=== PATIENT | female | born 1985 | race Caucasian/White ===

== ENCOUNTER 2020-07-27 09:01 | Outpatient (CLI) | payer BC, SELFPAY ==
[2020-07-27 09:49] LABS: Basophils Percent Auto 0.6 % (0.2-1.2); Eosinophils Absolute Auto 0.1 K/mm3 (0-0.3); Eosinophils Percent Auto 1.3 % (0-4.4); Hematocrit 38.2 % (37.0-47.0); Immature Granulocyte Absolute 0.04 K/mm3 (0.00-0.031); Immature Granulocyte Percent A 0.6 % (0-0.5); Lymphocytes Absolute Auto 1.89 K/mm3 (0.9-3.2); Lymphocytes Percent Auto 27.8 % (18.3-44.2); Mean Corpuscular Hemoglobin 31.3 pg (26-34); Mean Corpuscular Volume 91.8 fl (80-100); Mean Platelet Volume 10.3 fl (7.4-10.4); Monocytes Absolute Auto 0.4 K/mm3 (0.1-0.6); Monocytes Percent Auto 5.7 % (2.6-8.5); Neutrophils Absolute Auto 4.4 K/mm3 (1.3-6.7); Platelet Count Result 237 k/mm3 (150-375); Red Blood Count 4.16 M/mm3 (4.2-5.4); Red Cell Distribution Width 12.5 % (11.5-14.5); White Blood Count 6.8 K/mm3 (4.5-10.0)
[2020-07-27 10:10] LABS: Add Urine Microscopic? NO; Appearance Urine Clear (Clear); Bilirubin Urine Negative (Negative); Blood Urine Negative (Negative); Color Urine Straw (Yellow); Glucose Urine UA Negative (Negative); Ketones Urine Negative (Negative); Leukocyte Esterase Ur Negative LEU/UL (NEGATIVE); Nitrate Urine Negative (Negative); Protein Urine Negative (Negative); Specific Grav Ur 1.009 (1.001-1.035); Urobilinogen Urine Negative mg/dL (<2.0)
[2020-07-27 10:29] LABS: Vitamin D 25 Hydroxy 52.5 ng/mL
[2020-07-27 10:40] LABS: HIV 1/2 Ab P24 Ag Result Negative (Negative)
[2020-07-27 10:45] LABS: Hepatitis B Surface Antigen Negative (Negative); Rubella IgG Antibody 28.2 IU/ML
[2020-07-27 11:01] LABS: Hepatitis C Virus Antibody Negative (Negative)
[2020-07-28 06:34] LABS: Rapid Plasma Reagin Non-Reactive (NonReactive)
[2020-08-01 10:18] LABS: Hematocrit 38.9 % (35.0-45.0); Hemoglobin 13.2 g/dL (11.7-15.5); MCV 94.4 FL (80.0-100.0); RDW 13.6 % (11.0-15.0); Red Blood Cell Count 4.12 Mill/uL (3.80-5.10)
== END 2020-07-27 09:02 | disposition home or self-care (01) ==
PROVIDERS: PCP Family Medicine; Visit Provider Obstetrics & Gynecology
DX: N91.2 Amenorrhea, unspecified (principal)
CPT/HCPCS: 36415; 81003; 82306; 83021; 84443; 85025; 86592; 86703; 86762; 86787; 86803; 86850; 86900; 86901; 87077; 87086; 87088; 87340; G0432

== ENCOUNTER 2020-11-05 07:07 | Outpatient (RCR) | payer BC, SELFPAY ==
[2020-11-05 08:48] LABS: Glucose 1 Hour PP 50gm Dose 121 mg/dL
[2020-11-05 09:04] LABS: Basophils Percent Auto 0.4 % (0.2-1.2); Eosinophils Absolute Auto 0.1 K/mm3 (0-0.3); Eosinophils Percent Auto 1.3 % (0-4.4); Hematocrit 36.5 % (37.0-47.0); Immature Granulocyte Absolute 0.11 K/mm3 (0.00-0.031); Immature Granulocyte Percent A 1.4 % (0-0.5); Lymphocytes Absolute Auto 1.24 K/mm3 (0.9-3.2); Mean Corpuscular HGB Conc 32.9 g/dl (32-36); Mean Corpuscular Hemoglobin 32.3 pg (26-34); Mean Corpuscular Volume 98.4 fl (80-100); Mean Platelet Volume 10.4 fl (7.4-10.4); Monocytes Absolute Auto 0.4 K/mm3 (0.1-0.6); Neutrophils Absolute Auto 5.9 K/mm3 (1.3-6.7); Neutrophils Percent Auto 75.9 % (45.5-73.1); Platelet Count Result 240 k/mm3 (150-375); Red Blood Count 3.71 M/mm3 (4.2-5.4); White Blood Count 7.8 K/mm3 (4.5-10.0)
== END 2021-02-03 23:59 | disposition home or self-care (01) ==
LOC: ANHLAB 07:07
PROVIDERS: Visit Provider Obstetrics & Gynecology
DX: Z34.90 Encounter for supervision of normal pregnancy, unspecified, unspecified trimester (principal)
CPT/HCPCS: 36415; 82947; 85025; 85461

== ENCOUNTER 2020-11-11 12:52 | Outpatient (RCR) | payer BC, SELFPAY ==
[2020-11-11] MEDS: RHO(D) IMMUNE GLOBULIN 300 MCG/2 ML SYRINGE IM (14:54)
== END 2020-11-16 12:53 | disposition home or self-care (01) ==
LOC: ANHLAB 12:52
PROVIDERS: Visit Provider Obstetrics & Gynecology
DX: Z29.13 Encounter for prophylactic Rho(D) immune globulin (principal); O36.0120 Maternal care for anti-D [Rh] antibodies, second trimester, not applicable or unspecified; Z3A.26 26 weeks gestation of pregnancy
CPT/HCPCS: 36415; 85461; 90384; 96372; J2790

== ENCOUNTER 2020-12-14 08:22 | Outpatient (CLI) | payer BC, SELFPAY ==
[2020-12-14 08:48] LABS: Basophils Percent Auto 0.5 % (0.2-1.2); Eosinophils Absolute Auto 0.1 K/mm3 (0-0.3); Eosinophils Percent Auto 1.6 % (0-4.4); Hematocrit 37.6 % (37.0-47.0); Hemoglobin 12.5 g/dL (12.0-15.0); Immature Granulocyte Absolute 0.06 K/mm3 (0.00-0.031); Lymphocytes Absolute Auto 1.39 K/mm3 (0.9-3.2); Lymphocytes Percent Auto 22.9 % (18.3-44.2); Mean Corpuscular HGB Conc 33.2 g/dl (32-36); Mean Corpuscular Hemoglobin 31.6 pg (26-34); Mean Corpuscular Volume 95.2 fl (80-100); Mean Platelet Volume 10.4 fl (7.4-10.4); Monocytes Absolute Auto 0.5 K/mm3 (0.1-0.6); Monocytes Percent Auto 8.9 % (2.6-8.5); Neutrophils Percent Auto 65.1 % (45.5-73.1); Platelet Count Result 205 k/mm3 (150-375); Red Blood Count 3.95 M/mm3 (4.2-5.4); Red Cell Distribution Width 12.5 % (11.5-14.5); White Blood Count 6.1 K/mm3 (4.5-10.0)
[2020-12-14 09:38] LABS: HIV 1/2 Ab P24 Ag Result Negative (Negative)
[2020-12-14 09:52] LABS: Rapid Plasma Reagin Non-Reactive (NonReactive)
== END 2020-12-14 08:23 | disposition home or self-care (01) ==
PROVIDERS: Visit Provider Obstetrics & Gynecology
DX: Z34.90 Encounter for supervision of normal pregnancy, unspecified, unspecified trimester (principal); Z3A.00 Weeks of gestation of pregnancy not specified
CPT/HCPCS: 36415; 85025; 86592; 86703; G0432

== ENCOUNTER → 2021-01-18 13:43 | Outpatient (CLI) | payer BC, SELFPAY ==
--- NOTE | ~2021-01-18 | US_ITS ---
EXAMINATION: US OB follow up DATE: 01/18/2021 14:07 INDICATION: Estimated size less than expected for estimated gestational age during third trimes ter . TECHNIQUE: Real-time ultrasound of the pelvis was performed. The interpreting radiologist was not pre sent for the study. COMPARISON: None. FINDINGS: There is a single living fetus in vertex presentation. The placenta is posterior and not low-lying. heart rate is 150 beats per minute (bpm). The amniotic fluid index is 7.0 cm, which is normal (5th%-95%: 7.3-23.9 cm at 38 weeks estimated gestational age). The following biometric data were obtained: BPD: 8.6 cm -> 34 weeks 3 days Head circumference: 30.8 cm -> 34 weeks 3 days Abdominal circumference: 30.7 cm -> 34 weeks 4 days Femur length: 7.1 cm -> 36 weeks 3 days These measurements are concordant. Head circumference to abdominal circumference ratio: 1.00 (normal range 0.93-1.11). Estimated weight: 2588 g (+/-) 388 g or 5 lbs. 11 oz. (+/-) 14 oz. IMPRESSION: 1. Single living fetus in vertex presentation with heart rate of 150 bpm. 2. Oligohydramnios with amniotic fluid index of 7.0 cm which is greater than 2 standard deviations be low the mean. 3. Estimated weight is 3rd percentile by Hadlock criteria when 01/27/2021 is used as the estimate d date of delivery (RODRIGO). Please correlate with clinical information or earlier ultrasounds for most accurate RODRIGO. Reviewed, dictated and finalized at location B. IMPRESSION: 1. Single living fetus in vertex presentation with heart rate of 150 bpm. 2. Oligohydramnios with amniotic fluid index of 7.0 cm which is greater than 2 standard deviations below the mean. 3. Estimated weight is 3rd percentile by Hadlock criteria when 01/27/2021 i s used as the estimated date of delivery (RODRIGO). Please correlate with clinical information or earlier ultrasounds for most accurate RODRIGO.
== END ==
PROVIDERS: Visit Provider Obstetrics & Gynecology
DX: O26.843 Uterine size-date discrepancy, third trimester (principal); O41.00X0 Oligohydramnios, unspecified trimester, not applicable or unspecified; Z3A.00 Weeks of gestation of pregnancy not specified
CPT/HCPCS: 76816

== ENCOUNTER 2021-01-25 05:51 | Inpatient (IN) | payer BC, SELFPAY ==
[2021-01-25] VITALS (66 sets, daily range): BP systolic 87–151; BP diastolic 22–107; PULSE 60–99; RESP 16; TEMP 35.1–36.6; O2SAT 88–100; BMI 25.7
--- NOTE | 2021-01-25 05:51 | LDADM ---
This patient, Shelly Lewis, was admitted to Labor/Delivery/Recovery 104 on 01/25/21 at 05:51. Plans for labor, pain management and were discussed with patient. Patient/family oriented to hospital policies and general routines including ID bracelet, bed and alarms, visiting hours, pain management, procedures, bathroom and other care routines, personal items, smoking policy, room service/diet and guest tray routines, security routines, and visiting hours. Patient/Family are encouraged to report perceived risks to care and to ask questions if they do not understand what they are told or what they should do. See OBIX for further documentation.
[2021-01-25 07:11] LABS: Basophils Absolute Auto 0.1 K/mm3 (0.0-0.1); Basophils Percent Auto 0.3 % (0.2-1.2); Eosinophils Absolute Auto 0.1 K/mm3 (0-0.3); Eosinophils Percent Auto 0.7 % (0-4.4); Hematocrit 39.3 % (37.0-47.0); Hemoglobin 13.4 g/dL (12.0-15.0); Immature Granulocyte Absolute 0.18 K/mm3 (0.00-0.031); Immature Granulocyte Percent A 1.2 % (0-0.5); Lymphocytes Absolute Auto 2.18 K/mm3 (0.9-3.2); Lymphocytes Percent Auto 14.8 % (18.3-44.2); Mean Corpuscular HGB Conc 34.1 g/dl (32-36); Mean Corpuscular Hemoglobin 32.1 pg (26-34); Mean Platelet Volume 12.2 fl (7.4-10.4); Monocytes Percent Auto 6.6 % (2.6-8.5); Neutrophils Absolute Auto 11.3 K/mm3 (1.3-6.7); Neutrophils Percent Auto 76.4 % (45.5-73.1); Platelet Count Result 213 k/mm3 (150-375); Red Blood Count 4.18 M/mm3 (4.2-5.4); Red Cell Distribution Width 12.5 % (11.5-14.5); White Blood Count 14.8 K/mm3 (4.5-10.0)
[2021-01-25] MEDS: LACTATED RINGERS 1,000 ML 125 ML IV CONT ×2 (07:23→14:00)
[2021-01-25] MEDS: AMPICILLIN 2 GM/NS 100 ML 2 GM/100 ML BAG IVPB (07:24)
[2021-01-25 09:57] LABS: Rapid Plasma Reagin Non-Reactive (NonReactive)
--- NOTE | 2021-01-25 10:10 | PM.IMHP ---
H&P: HPI History of Present Illness Date/Time: 01/25/21 10:10 Patient is a 35yo LMP 04/26/20 currently 39w1d gestation with RODRIGO 01/31/21. Patient is dated by LMP consistent with US on 07/08/20 at 10w gestation. Patient presents to L&D with complaint of contractions. Reports waking up this morning with contractions. States she drank some water to see if contractions would resolve, however, they were occurring every 3 minutes and persisted for an hour. Upon presentation to L&D, patient was noted to be 4-5 cm dilated. Contractions, however, spaced out. She denies any vaginal bleeding or leakage of fluid. Reports good movement. Patient was previously scheduled for an induction of labor this afternoon and decision was made to proceed with admission. Chief Complaint: Labor GBS positive Review of Systems Review of Systems: All systems reviewed & are unremarkable except as noted in HPI and below Constitutional: Constitutional: Reports as per HPI, Reports no additional constitutional complaints, Denies chills, Denies fever(s), Denies headache(s) and Denies night sweats Eyes: Eyes: Reports as per HPI and Reports no additional eye complaints ENT: Reports system reviewed and no additional complaints, except as documented, Reports as per HPI, Reports Normal hearing present and Denies headache(s) Cardiovascular: Cardiovascular: Reports as per HPI, Reports no additional cardiovascular complaints, Denies chest pain and Denies dyspnea Respiratory: Respiratory: Reports as per HPI, Reports no additional respiratory complaints, Denies cough and Denies dyspnea Gastrointestinal: Gastrointestinal: Reports as per HPI, Reports no additional gastrointestinal complaints, Denies abdominal pain, Denies change in bowel habits, Denies change in stool character, Denies nausea and Denies vomiting Genitourinary: Genitourinary: Reports no additional female genitourinary complaints, Reports as per HPI, Denies abnormal vaginal bleeding, Denies genital lesions, Denies hot flashes, Denies dyspareunia, Denies pelvic pain, Denies sexual dysfunction, Denies urinary incontinence, Denies vaginal discharge, Denies vaginal dryness and Denies vaginal odor Musculoskeletal: Musculoskeletal: Reports no additional musculoskeletal complaints and Reports as per HPI Integumentary/Breasts: Skin/Breast: Reports system reviewed and no additional complaints, except as docu, Reports as per HPI, Denies breast pain and Denies nipple discharge Neurologic: Reports system reviewed and no additional complaints, except as documented, Reports as per HPI, Reports Normal hearing present and Denies headache(s) Psychiatric: Psychiatric: Reports no additional psychiatric complaints, Reports as per HPI, Denies anxiety and Denies depression Endocrine: Endocrine: Reports no additional endocrine complaints and Reports as per HPI Hematologic/Lymphatic: Hematologic/Lymphatic: Reports no additional hematologic/lymphatic complaints and Reports as per HPI Allergic/Immunologic: Allergic/Immunologic: Reports no additional allergic/immunologic complaints and Reports as per HPI PMFSH Past Medical History Medical History Admission for breast augmentation History of x1 History of vaginal delivery x1 Surgical History Surgical History [place] teeth removed Family History Family History Grandparent Cerebrovascular accident Family history of malignant neoplasm of breast Sibling Family history of malignant neoplasm Mother Family history of lymphoma Family history of malignant neoplasm of breast in first degree relative Social History Social History Smoking status: Never smoker Second hand tobacco smoke exposure: No Alcohol intake: never Substance use: never Gender identity (if pia
--- NOTE | 2021-01-25 10:22 | WPDHPUPDATE1 ---
History and Physical Update Update Date/Time: 01/25/21 10:22 History and Physical has been reviewed, including an updated exam of the patient. There are NO changes in the patient's condition. Risks, benefits, and alternatives have been discussed and questions answered. Patient agrees to proceed with procedure.
[2021-01-25] MEDS: AMPICILLIN 1 GM/NS 50 ML 1 GM/50 ML BAG IVPB ×2 (11:33→15:42)
[2021-01-25] MEDS: OXYTOCIN 30 UNITS/NS 500 ML 30 UNITS/500 ML BAG IV CONT (13:59)
--- NOTE | 2021-01-25 16:43 | WPDANESEPP ---
Anes - Eval Pre Procedure Procedure: Labor epidural Date/Time: 01/25/21 16:43 Surgeon: Elizabeth Preop Diagnosis: Abd pain wit contractions Pre Op Diagnosis: Contractions Patient Data Age: 35 Gender: F Height: 1.7 m Weight: 74.5 kg Last Vital Signs Temp 97.7 F 01/25/21 15:30 Pulse 71 01/25/21 16:30 BP 117/84 01/25/21 16:30 Allergies Allergy/AdvReac Type Severity Reaction Status Date / Time No Known Allergies Allergy Verified 01/21/21 09:09 Home Medications Medication Instructions Recorded Confirmed Type prenat.vits,mar,[id number] 1 tablet PO DAILY 08/27/20 01/25/21 History Laboratory Tests 01/25/21 01/25/21 01/25/21 07:01 07:01 07:01 WBC 14.8 K/mm3 H K/mm3 (4.5-10.0) RBC 4.18 M/mm3 L M/mm3 (4.2-5.4) Hgb 13.4 g/dL g/dL (12.0-15.0) Hct 39.3 % % (37.0-47.0) MCV 94.0 fl fl (80-100) MCH 32.1 pg pg (26-34) MCHC 34.1 g/dl g/dl (32-36) RDW 12.5 % % (11.5-14.5) Plt Count 213 k/mm3 k/mm3 (150-375) MPV 12.2 fl H fl (7.4-10.4) Immature Gran % (Auto) 1.2 % H % (0-0.5) Neut % (Auto) 76.4 % H % (45.5-73.1) Lymph % (Auto) 14.8 % L % (18.3-44.2) [place]lee % (Auto) 6.6 % % (2.6-8.5) Eos % (Auto) 0.7 % % (0-4.4) Baso % (Auto) 0.3 % % (0.2-1.2) Lymph # (Auto) 2.18 K/mm3 K/mm3 (0.9-3.2) [place]lee # (Auto) 1.0 K/mm3 H K/mm3 (0.1-0.6) Eos # (Auto) 0.1 K/mm3 K/mm3 (0-0.3) Baso # (Auto) 0.1 K/mm3 K/mm3 (0.0-0.1) Abs Immat Gran (auto) 0.18 K/mm3 H K/mm3 (0.00-0.031) Absolute Neuts (auto) 11.3 K/mm3 H K/mm3 (1.3-6.7) Absolute Nucleated RBC 0.0 K/mm3 K/mm3 (0.0-0.012) Nucleated RBC % 0.0 % % (0.0-0.2) RPR Non-reactive (NonReactive) Blood Type O Negative Antibody Screen Positive Antibody Identification Inconclusive Antigen Identification Cancelled ENEIDA, IgG Interpret Not Performed ENEIDA, Poly Interpret Negative ENEIDA, Complement Interp Not Performed Patient hx anesthesia problems: none Family hx anesthesia problems: none PMFSH Past Medical History Medical History Admission for breast augmentation History of x1 History of vaginal delivery x1 Surgical History Surgical History [place] teeth removed Family History Family History Grandparent Cerebrovascular accident Family history of malignant neoplasm of breast Sibling Family history of malignant neoplasm Mother Family history of lymphoma Family history of malignant neoplasm of breast in first degree relative Social History Social History Smoking status: Never smoker Second hand tobacco smoke exposure: No Alcohol intake: never Substance use: never Gender identity (if verbalized by the patient): Female Sexual Orientation (if Verbalized by the Patient): Straight or Heterosexual Spiritual care concerns: No Exam Day of Procedure 01/25/21 16:43 Patient weight: overweight Airway: Mallampati scale class II Neurological: alert and oriented
[2021-01-25] MEDS: ONDANSETRON INJ 4 MG/2 ML VIAL IV PUSH (16:55)
--- NOTE | 2021-01-25 18:01 | PM.IMHP ---
H&P: HPI History of Present Illness Date/Time: 01/25/21 18:01 Patient admitted in labor. Patient at 39 weeks by LMP 04/26/20 with an EDC 01/31/21 consistent with first trimester ultrasound. PNC significant for GBS in urine in first trimester. Recent GBS vag rec culture neg. Patient recommended for GBS prophylaxis in labor. She presented to L and D in labor. She had cervical change. She was scheduled for induction for the afternoon of 01/25. Chief Complaint: Contractions. Review of Systems Review of Systems: All systems reviewed & are unremarkable except as noted in HPI and below Constitutional: Constitutional: Reports no additional constitutional complaints and Denies headache(s) Eyes: Eyes: Denies spots in vision ENT: Reports system reviewed and no additional complaints, except as documented and Denies headache(s) Cardiovascular: Cardiovascular: Denies chest pain and Denies dyspnea Respiratory: Respiratory: Denies dyspnea Gastrointestinal: Gastrointestinal: Reports no additional gastrointestinal complaints Genitourinary: Genitourinary: Reports amenorrhea Musculoskeletal: Musculoskeletal: Reports no additional musculoskeletal complaints Integumentary/Breasts: Skin/Breast: Denies breast mass and Denies rash Neurologic: Denies headache(s) Psychiatric: Psychiatric: Reports no additional psychiatric complaints PMFSH Past Medical History Medical History Admission for breast augmentation History of x1 History of vaginal delivery x1 Surgical History Surgical History [place] teeth removed Family History Family History Grandparent Cerebrovascular accident Family history of malignant neoplasm of breast Sibling Family history of malignant neoplasm Mother Family history of lymphoma Family history of malignant neoplasm of breast in first degree relative Social History Social History Smoking status: Never smoker Second hand tobacco smoke exposure: No Alcohol intake: never Substance use: never Gender identity (if verbalized by the patient): Female Sexual Orientation (if Verbalized by the Patient): Straight or Heterosexual Spiritual care concerns: No Meds Home Medications and Allergies Home Medications Medication Instructions Recorded Confirmed Type prenat.vits,mar,kea-bmyp-nlhki 1 tablet PO DAILY 08/27/20 01/25/21 History Allergies Allergy/AdvReac Type Severity Reaction Status Date / Time No Known Allergies Allergy Verified 01/21/21 09:09 Vital Signs Vital Signs - 24 hr 01/25/21 06:16 01/25/21 06:30 01/25/21 06:45 Temperature Pulse Rate 72 71 71 Blood Pressure 113/79 114/85 118/85 Pulse Oximetry 01/25/21 07:00 01/25/21 07:15 01/25/21 07:30 Temperature 95.1 F L Pulse Rate 72 72 72 Blood Pressure 116/75 102/75 108/84 Pulse Oximetry 01/25/21 07:45 01/25/21 08:01 01/25/21 08:15 Temperature Pulse Rate 75 72 73 Blood Pressure 113/89 106/82 108/75 Pulse Oximetry 01/25/21 08:30 01/25/21 13:35 01/25/21 13:45 Temperature 95.8 F L Pulse Rate 76 80 Blood Pressure 112/75 109/77 Pulse Oximetry 01/25/21 14:00 01/25/21 14:15 01/25/21 14:30 Temperature Pulse Rate 78 77 77 Blood Pressure 116/83 119/77 111/70 Pulse Oximetry 01/25/21 14:45 01/25/21 15:00 01/25/21 15:15 Temperature Pulse Rate 76 75 74 Blood Pressure 116/73 112/78 111/87 Pulse Oximetry 01/25/21 15:30 01/25/21 15:45 01/25/21 16:00 Temperature 97.7 F Pulse Rate 71 72 79 Blood Pressure 121/85 118/86 111/83 Pulse Oximetry 01/25/21 16:15 01/25/21 16:30 01/25/21 16:46 Temperature Pulse Rate 69 71 67 Blood Pressure 123/89 117/84 115/65 Pulse Oximetry 01/25/21 16:57 01/25/21 16:58 01/25/21 16
--- NOTE | 2021-01-25 18:05 | PM.OBPRVD ---
OB - Delivery Note Procedure Delivery date: 01/25/21 Procedure: Spontaneous vaginal delivery Delivery augmentation: pitocin Delivery monitor: external FHT Route of delivery: Laceration Description: None Specimen: No Quantitative Blood Loss (ml): 200 Anesthesia type: Epidural Disposition: floor Narrative: Patient admitted in active labor. She was dilated to 5 cm for over several hours. She had Pitocin started for augmentation. She did receive and epidural as requested. She had spontaneous rupture of membranes and was complete soon afterward with pressure to push. She delivered a female . Terminal meconium noted. vigorous on delivery and placed on maternal abdomen. Delayed cord clamping for 30 seconds. Placenta delivered spontaneously and intact. She has a stretched area of skin at left lower introitus, hemostatic, no suture needed. She tolerated procedure well. Baby Date of : 01/25/21 Time of : 17:50 Weeks of gestation at delivery: 39 gender: Female Weight (pounds): 6 Weight (ounces): 5 presentation: vertex position: Left Occiput Anterior Placenta delivery description: Spontaneous cord vessel description: 3 Vessels score one minute: 8 score five minutes: 9
[2021-01-25] MEDS: OXYTOCIN 30 UNITS/NS 500 ML 30 UNITS/500 ML BAG 125 UNITS IV CONT (18:27)
--- NOTE | 2021-01-25 21:52 | OBPPTRN ---
Patient transferred to post room #283 via wheelchair. Support person present. Oriented to unit, room, information board, rooming in, admission packet and security measures. Patient verbalizes understanding.
[2021-01-26 01:30] VITALS: BP 116/69; PULSE 79; RESP 16; TEMP 36.8; O2SAT 98
[2021-01-26 04:30] VITALS: BP 120/74; PULSE 70; RESP 16; TEMP 36.8; O2SAT 98
[2021-01-26 04:50] LABS: Hematocrit 33.2 % (37.0-47.0); Hemoglobin 11.5 g/dL (12.0-15.0)
[2021-01-26] MEDS: MULTIVIT/MIN/PREN/FOL AC/IRON TABLET 1 TAB PO (07:18)
[2021-01-26] MEDS: DOCUSATE SODIUM 100 MG CAPSULE PO (07:18)
[2021-01-26 07:28] VITALS: BP 105/73; PULSE 83; RESP 16; TEMP 36.7; O2SAT 97
--- NOTE | 2021-01-26 10:08 | WPDANLDPN2 ---
Anes-Prog Note L&D Date/Time: 01/26/21 10:08 Comfortable throughout: labor and delivery Neuraxial method: epidural Epidural/Spinal procedure site: clean & non-tender Neuro status: Neuro function grossly intact. Cardiovascular status: normal Respiratory status: normal Airway patency: baseline Mental status: baseline Post-Op hydration status: normal Vital Signs: Last Vital Signs Temp 36.7 C 01/26/21 07:28 Pulse 83 01/26/21 07:28 Resp 16 01/26/21 07:28 BP 105/73 01/26/21 07:28 Pulse Ox 97 01/26/21 07:28 Pain score (VAS): 0 I/O: Intake & Output 01/25/21 01/26/21 01/26/21 23:59 07:59 15:59 Intake Total 550 Output Total 426 Balance 124 Post-procedural complaints: none Patient feedback: Patient satisfied with anesthetic care.
[2021-01-26 12:40] VITALS: BP 114/75; PULSE 74; RESP 16; TEMP 36.2; O2SAT 97
--- NOTE | 2021-01-26 13:00 | PC.NURSE ---
Mother called out for assist with feeding, reporting tenderness to left nipple. is able to freely thrust tongue past gum ridge and flange both lips. Skin is intact on both nipples, redness noted to left nipple. Mother has in football hold allowing to self latch with a shallow latch and chin is to chest. Reviewed infant feeding cues, frequencies, duration of feedings, feeding elimination flow sheet, and signs of adequate intake. Demonstrated stimulation techniques to wake for feeding. Assisted with infant to breast. Reviewed positioning/alignment in football, holding breast in ?C? hold and guided asymmetrical latch on. Discussed rational for each. able to latch correctly. Reviewed signs of a correct latch, effective nursing and suck swallow ratio. nursed eagerly, with steady draws and frequent swallowing noted. Reviewed the difference of effective vs ineffective nursing. Suggested mother stimulate while feeding to increase stimulation, increase intake and to assist with maintaining deep latch. would slip to shallow latch, mother reports tenderness. Demonstrated how to adjust latch more deeply while feeding. Mother reports she can feel change in latch and has no tenderness. Mother would not continue to hold breast, advised to hold breast during entire feeding to assist with maintaining latch and to adjust when needed. Nipple care reviewed of lanolin after feedings, warm compresses as needed.
[2021-01-26 17:35] VITALS: BP 113/86; PULSE 72; RESP 16; TEMP 36.6; O2SAT 98
[2021-01-26 18:58] VITALS: BP 117/79; PULSE 74; RESP 16; TEMP 36.7; O2SAT 97
[2021-01-27 09:23] VITALS: BP 121/95; PULSE 90; RESP 14; TEMP 36.4; O2SAT 96
[2021-01-27] MEDS: MULTIVIT/MIN/PREN/FOL AC/IRON TABLET 1 TAB PO (09:23)
[2021-01-27] MEDS: DOCUSATE SODIUM 100 MG CAPSULE PO (09:23)
--- NOTE | 2021-01-27 09:49 | PC.NURSE ---
0800 Patient viewed the discharge video Mother & Baby Care, The First Two Weeks . Patient was given the opportunity and encouraged to ask questions. Patient verbalized understanding of information shared and has been given the mother/baby guide for home reference.
--- NOTE | 2021-01-27 09:50 | PC.NURSE ---
Mother called out for assist with feeding, reporting tenderness to left breast. Small area to tip of nipple with redness noted. Nipple care reviewed of lanolin after feedings, warm compresses as needed. Assisted with to breast. Reviewed positioning/alignment in cross cradle, holding breast in ?U? hold and guided asymmetrical latch on. Discussed rational for each. Mother begins to put infant to breast in cradle allowing to latch with chin stretched up and not holding breast. Suggested mother use cross cradle as discussed. Infant able to latch correctly within a few attempts. Reviewed signs of a correct latch, effective nursing and suck swallow ratio. Infant nursed eagerly, with steady draws and frequent swallowing noted. Reviewed the difference of effective vs ineffective nursing. Suggested mother stimulate while feeding to increase stimulation, increase intake and to assist with maintaining deep latch. Mother wanted to release latch. would slip to shallow latch, mother reports tenderness. Demonstrated how to adjust latch more deeply while feeding. Mother reports she can feel change in latch and has no tenderness. Advised to hold breast during entire feeding to assist with maintaining deep latch. Mother is feeding as required and waking to feed if needed. Infant has had at least 8 effective feedings in the past 24 hours, and is currently meeting outcomes for weight, output, jaundice and feeding frequencies. Mother states she feels confident to continue effective at home. Reviewed transition to breast milk, signs of adequate intake, and engorgement/relief. Instructed to call ICP if intake/output less than required. Reviewed regular medications mother is taking. Information provided per Natali. Reviewed community resources on the [facility] website and in the Mom/Baby guide. Information on outpatient services provided. Mother has no further questions at this time.
[2021-01-27 10:10] VITALS: BP 114/75; PULSE 75
--- NOTE | 2021-01-27 11:38 | P.DS_ITS ---
DS: Admitting Diagnosis Admitting Diagnosis Labor DS: Discharge Diagnosis Discharge Diagnosis (1) Labor without complication: Code(s): O80 - Encounter for full-term uncomplicated delivery Status: Acute OB - DS: Summary Hospital Course Hospital Course: Patient was admitted in active labor on January 25. She did need for Pitocin augmentation. She did have a normal spontaneous vaginal delivery. she did well she was ambulating well on day 1 tolerating regular food had adequate pain control. She was discharged home on day 2 discharge instructions provided. OB Procedures : Ultrasound OB Procedures Intrapartum: Spontaneous Vag Delivery OB Procedures: : None Peripartum Data Delivery Method: Natural Vaginal Episiotomy description: None complications: none Status at Discharge Functional status at discharge: independent ambulation Overall status at discharge: other (Recovery) Time Spent with Patient Time attestation: Total time spent providing and/or coordinating discharge services: Time spent: Less than 30 minutes Exam Const: General: cooperative Orientation/consciousness: oriented to person, oriented to place and oriented to time HENMT: General nose exam: Normal external nose present Eyes: General: appearance normal, both eyes and all related structures Resp: Effort & Inspection: normal respiratory effort GI: Inspection: normal to inspection Skin: General skin exam: normal color Neuro: General: oriented to person, oriented to place and oriented to time Extrem: General: normal to inspection and no calf tenderness Psych: Appearance: grossly normal Mental Status: mental status grossly normal DS: Data Procedures/Treatments: Spontaneous vaginal delivery Discharge Plan Discharge Attending physician on discharge: Arturo Arias Consulting providers: Paul Mullins Discharging Clinician: Arturo Arias Anticipated Discharge Date/Time: 01/27/21 11:36 Patient Disposition: Home, Self-Care Activity: may shower and pelvic rest Diet: regular Discharge Instructions: Pelvic rest for 4-6 weeks. May take over the counter Ibuprofen or Tylenol for pain. Call if saturating more than a pad an hour, leg redness, pain and swelling, temperature>100.4. No strenuous activity. Take PNV daily. Patient Instructions: Antibiotic Form Stand Alone Forms: General Discharge Information Follow-up/Referrals: Arturo Arias MD [Physician] - 4 Weeks Discharge Medications: Continued prenat.vits,mar,[id number] Tablet 1 tablet PO DAILY RF: 0 Date of admission: 01/25/21 05:51 Primary Care Provider: PHYSICIAN,INTELLIGENCE CONSULTANT Admitting Provider: Arturo Arias Attending physician on admission: Arturo Arias Condition: Stable
[2021-01-28 09:17] VITALS: BP 110/68; PULSE 65; RESP 16; TEMP 36.9; O2SAT 100
== END 2021-01-27 13:35 | disposition home or self-care (01) | DRG 807 ==
LOC: ANHLDR 05:55 → ANHOB2 23:31
PROVIDERS: Admitting Provider Obstetrics & Gynecology; Visit Provider Obstetrics & Gynecology
DX: O99.824 Streptococcus B carrier state complicating childbirth (principal); Z37.0 Single live birth; Z3A.39 39 weeks gestation of pregnancy; O36.8330 Maternal care for abnormalities of the fetal heart rate or rhythm, third trimester, not applicable or unspecified
CPT/HCPCS: 36415; 85014; 85018; 85025; 86592; 86850; 86880; 86900; 86901; A9270; J0290; J2405; J2590; J2795; J7120

== ENCOUNTER 2023-03-06 11:04 | Outpatient (CLI) | payer OTHER, SELFPAY ==
[2023-03-06 19:49] LABS: Alanine Aminotransferase 13 U/L (6-35); Albumin Level 4.5 g/dL (3.5-5.1); Alkaline Phosphatase 60 U/L (38-126); Anion Gap 6 mmol/L (8-16); Aspartate Amino Transferase 22 U/L (14-36); Bilirubin,Total 0.5 mg/dL (0.2-1.3); Blood Urea Nitrogen 16 mg/dL (7-17); Calcium 9.3 mg/dL (8.4-10.2); Carbon Dioxide 30 mmol/L (22-30); Chloride 103 mmol/L (98-107); Cholesterol 195 mg/dL (0-200); Estimated Glomerular Filt Rate > 60; Glucose 93 mg/dL (65-110); HDL Direct 75 mg/dL; Sodium 139 mmol/L (137-145); Triglycerides 52 mg/dL (<150)
[2023-03-06 20:09] LABS: LDL Cholesterol Direct 92 mg/dL
[2023-03-06 20:12] LABS: Iron 87 ug/dL (37-170)
[2023-03-06 20:23] LABS: Percent Iron Saturation 26 % (20-50)
[2023-03-06 20:26] LABS: Basophils Absolute Auto 0.1 K/mm3 (0.0-0.1); Basophils Percent Auto 0.9 % (0.2-1.2); Eosinophils Absolute Auto 0.2 K/mm3 (0-0.3); Eosinophils Percent Auto 2.7 % (0-4.4); Hematocrit 39.9 % (37.0-47.0); Immature Granulocyte Absolute 0.01 K/mm3 (0.00-0.031); Immature Granulocyte Percent A 0.2 % (0-0.5); Lymphocytes Absolute Auto 2.18 K/mm3 (0.9-3.2); Mean Corpuscular HGB Conc 32.6 g/dl (32-36); Mean Corpuscular Hemoglobin 32.3 pg (26-34); Mean Platelet Volume 11.9 fl (7.4-10.4); Monocytes Absolute Auto 0.5 K/mm3 (0.1-0.6); Monocytes Percent Auto 8.6 % (2.6-8.5); Neutrophils Absolute Auto 2.7 K/mm3 (1.3-6.7); Neutrophils Percent Auto 48.6 % (45.5-73.1); Platelet Count Result 241 k/mm3 (150-375); Red Blood Count 4.03 M/mm3 (4.2-5.4); Red Cell Distribution Width 12.3 % (11.5-14.5); White Blood Count 5.6 K/mm3 (4.5-10.0)
[2023-03-06 20:41] LABS: Vitamin D 25 Hydroxy 44.5 ng/mL
[2023-03-06 21:51] LABS: Hemoglobin A1C 4.8 % (<5.7)
[2023-03-08 18:58] LABS: CA-125 20 U/mL (<35)
== END 2023-03-06 11:05 | disposition home or self-care (01) ==
LOC: ANHGOSHLAB 11:06
PROVIDERS: PCP Family Medicine; Visit Provider Nurse Practitioner Family
DX: Z13.220 Encounter for screening for lipoid disorders (principal); Z13.21 Encounter for screening for nutritional disorder; Z13.29 Encounter for screening for other suspected endocrine disorder; Z13.1 Encounter for screening for diabetes mellitus; Z00.00 Encounter for general adult medical examination without abnormal findings; E53.8 Deficiency of other specified B group vitamins; I10 Essential (primary) hypertension; N92.6 Irregular menstruation, unspecified; Z80.9 Family history of malignant neoplasm, unspecified
CPT/HCPCS: 36415; 80053; 80061; 82306; 82607; 83036; 83540; 83550; 84443; 85025; 86304

== ENCOUNTER 2023-03-16 07:57 | Outpatient (CLI) | payer OTHER, SELFPAY ==
--- NOTE | ~2023-03-16 | US_ITS ---
Pelvic ultrasound. Clinical History: Pain, IUD Technique: Realtime transabdominal and transvaginal scanning of the pelvis was performed. Color flow Doppler and Doppler spectral analysis were performed. Findings: The uterus is anteverted. The endometrial stripe has a thickness of 5 mm. IUD is in satisf actory position. No focal mass is identified. The right ovary measures 2.3 x 3.4 x 1.7 cm. No significant right ovarian or adnexal mass is seen. The left ovary measures 1.7 x 3.4 x 1.8 cm. No significant left ovarian or adnexal mass is seen. Vascular flow present in both ovaries on Doppler spectral analysis. There is no evidence of free fluid in the cul de sac. Impression: IUD in satisfactory position. No other significant findings. Reviewed, dictated and finalized at [facility]. Impression: IUD in satisfactory position. No other significant findings.
== END 2023-03-16 07:58 | disposition home or self-care (01) ==
PROVIDERS: PCP Family Medicine; Visit Provider Registered Nurse
DX: Z30.431 Encounter for routine checking of intrauterine contraceptive device (principal)
CPT/HCPCS: 76830; 76856

== ENCOUNTER 2023-04-01 09:08 | Emergency (ER) | payer OTHER, SELFPAY ==
--- NOTE | ~2023-04-01 | XR_ITS ---
EXAMINATION: XR chest 2V DATE: 04/01/2023 10:44 INDICATION: Cough TECHNIQUE: Frontal and lateral views of the chest are obtained COMPARISON: None available FINDINGS: There are minimal airspace opacities of the left lung base. No pleural effusion or pneumoth orax. The cardiomediastinal silhouette is normal. The visualized bones and soft tissues are unremarka ble. Bilateral breast implants are noted. IMPRESSION: 1. Left basilar airspace opacity, likely pneumonia. Reviewed, dictated and finalized at location F.
[2023-04-01 09:29] VITALS: BP 130/87; PULSE 115; RESP 16; TEMP 36.6; O2SAT 99
--- NOTE | 2023-04-01 09:56 | ED.GENADULT ---
HPI - General Adult General Chief complaint: Upper Respiratory Infection Stated complaint: COUGH/BODY ACHES/FEVER/TIRED Source: patient, family and RN notes reviewed History of Present Illness HPI narrative: 37 yo F presents to urgent care with complaints of fevers, chills, body aches, cough, congestion, sore throat, SOB, wheezing, and nausea x 6 days. Pt states she hasn't eaten much this week and denies any vomiting or diarrhea. Pt states she has tested herself multiple times for covid which is negative. Related Data Home Medications Medication Instructions Recorded Confirmed levonorgestrel 17.5 mcg/24 hrs 1 device intrauterine ONCE 01/17/22 04/01/23 (5yrs) 19.5mg intrauterine device (Kyleena) multivitamin (Daily Multi-Vitamin 1 tablet PO DAILY 08/12/22 04/01/23 tablet) Allergies Allergy/AdvReac Type Severity Reaction Status Date / Time No Known Allergies Allergy Verified 04/01/23 09:49 Review of Systems Review of Systems: Pertinent positives and pertinent negatives per HPI. [facility] Past Medical History Medical History (Updated 04/01/23 @ 11:10 by Henna Palacios, CRISTAL) Abnormal bleeding in menstrual cycle Family history of cancer History of x1 - 2017 History of vaginal delivery x2 - 2017, 2020 Migraine headache without aura Recurrent herpes labialis Surgical History Surgical History H/O gynecological procedure kyleena insertion 12/2021 S/P breast augmentation (~05/2012) b/l [place] teeth removed 2007 Family History Family History Grandparent Cerebrovascular accident Family history of malignant neoplasm of breast Sibling Family history of malignant neoplasm Mother Family history of lymphoma Family history of malignant neoplasm of breast in first degree relative Social History Social History Smoking status: Never smoker Second hand tobacco smoke exposure: No Alcohol intake: never Substance use: never Lack of Transportation: No Lack of Food: Never True Current Housing: I Have Housing Concerned About Future Housing: No Difficulty Paying Gas/Electric Bills: No Difficulty Paying for Meds: No Currently Unemployed: No Education: Master's Degree or Higher Living arrangements: with family Occupation/Education: occupation Gender identity (if verbalized by the patient): Female Sexual Orientation (if Verbalized by the Patient): Straight or Heterosexual Spiritual care concerns: No Comments At the time of my signature, I reviewed and agree with the nursing past medical, surgical, social, and family history. There is no relevant family history pertinent to the patient complaint. Exam Narrative: GENERAL: This is a well-nourished, well-developed patient, in no apparent distress. HEAD: normocephalic, atraumatic. EYES: Sclera clear/white. Vision is grossly intact. EARS: External ears normal, auditory canals clear and without drainage, TMs normal without perforation. Hearing grossly intact. NOSE: External nose normal. + rhinorrhea. THROAT: Mucous membranes moist, posterior pharynx erythemic. Voice is slightly hoarse. NECK: Neck supple, non-tender without lymphadenopathy, masses or thyromegaly. CARDIOVASCULAR: Regular rate and rhythm without murmurs, gallops, or rubs. RESPIRATORY: Clear to auscultation. Breath sounds equal bilaterally. No wheezes, rales, or rhonchi. Pt has frequent cough during exam. SKIN: warm, intact with no suspicious lesions or rash, good texture and turgor. NEURO: awake, alert, and oriented to person, place and time. There were no obvious focal neurologic abnormalities. Course Course Level of Care: Express Care Visit Vital Signs Vital signs: Vital Signs Temperature 98 F 04/01/23 09:29 Pulse Rate 115 H 04/01/23 09:29 Respiratory
== END 2023-04-01 11:15 | disposition home or self-care (01) ==
PROVIDERS: Emergency Provider Nurse Practitioner Family; PCP Family Medicine
DX: J18.9 Pneumonia, unspecified organism (principal)
CPT/HCPCS: 71046; 87081; 87880; 99213; G0463

== ENCOUNTER 2025-05-05 06:51 | Outpatient (CLI) | payer OTHER, SELFPAY ==
--- OUTSIDE RECORDS SUMMARY | 2025-05-05 06:54 | XMS_ITS | Clinical Summary ---
Author Organization [facility] Address [address] [place] [address] Care Team Providers Care Telegraph Editor Name Role Phone Sylvie Smith MD Primary Care Provider [phone] Source Comments [facility],non-owned Affiliates and Associated Physician Practices is amultiple site organization consisting of ambulatory clinics and hospital sitesin [place], [place], [place] and [place]. This disclosure is being madepursuant to the Care Everywhere program and may not contain all information available regarding this patient. Last updated 18.[facility] Allergies No known active allergies Medications * Be aware that medications may not be up to date on this document. Alwaysverify current medications with the patient. 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 Gender Identity Female 03/15/2018 6:03 PM CDT Sexual Orientation Not on file Last Filed Vital Signs Vital Sign Reading Time Taken Comments Blood Pressure 134/85 03/15/2018 6:06 PM CDT Pulse 69 03/15/2018 6:06 PM CDT Temperature 36.6 C (97.9 F) 03/15/2018 6:06 PM CDT Respiratory Rate 18 03/15/2018 6:06 PM CDT Oxygen Saturation 100% 03/15/2018 6:06 PM CDT Inhaled Oxygen Concentration - - Weight 59 kg (130 lb) 03/15/2018 6:06 PM CDT Height - - Body Mass Index - - Plan of Treatment Health Maintenance Due Date Last Done Comments HIV SCREENING 2000 HEPATITIS C SCREENING 12/27/2003 DTAP/TDAP/TD VACCINES (1 - Tdap) 2004 HEPATITIS B VACCINE (1 of 3 - 19+ 3-dose series) 2004 HPV VACCINE (1 - 3-dose SCDM series) 2012 DEPRESSION SCREENING 05/29/2024 COVID-19 VACCINE (3 - 2024-2 6 season) 2025 02/16/2021, 10/20/2020 INFLUENZA VACCINE (#1) 2025 01/03/2020 ZOSTER VACCINE (1 of 2) 01/01/2036 HIB VACCINE Aged Out No longer eligi ble based on patient's age to complete this topic MENINGOCOCCAL (Group B) VACCINE SHARED DECISION-MAKING Aged Out No longer eligible based on patient's age to complete this topic MENINGOCOCCAL GROUPS A/C/Y/W VACCINE Aged Out No longer eligible b ased on patient's age to complete this topic PNEUMOCOCCAL VACCINE Aged Out No long er eligible based on patient's age to complete this topic Insurance [facility] Care Teams Telegraph Editor Relationship Specialty Start Date End Date Sylvie Smith MD PCP - General Family Medicine 03/15/18
--- OUTSIDE RECORDS SUMMARY | 2025-05-05 06:54 | XMS_ITS | Encounter Summary ---
Author Organization [facility] Address [address] [place], [place] [address] [address] Care Team Providers Care Leadite Man Name Role Phone Sylvie Smith MD Primary Care Provider [phone] Encounter Details Date Type Department Care Team (Late st Contact Info) Description 02/10/2020 Lab Requisition [facility] [address] [place] [address] Val Matos MD [address] [facility] [address] [place] [address] Social History Tobacco Use Types Packs/Day Years Used Date Smoking Tobacco: Never Smokeless Tobacco: Never Comments No Sex and Gender Information Value Date Recorded Sex Assigned at Not on file 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 Gender Identity Female 03/15/2018 6:03 PM CDT Sexual Orientation Not on file documented as of this encounter Plan of Treatment Not on file documented as of this encounter Procedures Procedure Name Priority Date/Time Associated Diagnosis Comments DERMATOPATHOLOGY Routine 02/10/2020 12:0 0 AM CDT documented in this encounter Results * DERMATOPATHOLOGY (02/10/2020 12:00 AM CDT) Case Report Dermatopathology Report Case: [id number] Authorizing Provider: Val Matos MD Collected: 02/10/2020 12:00 AM Ordering Location: [facility] Lab Received: 02/10/2020 11:07 AM Pathologist: Mirna Tapia MD Specimen: Skin, left thigh 0 12:36 PM CDT DERMATOPATHOLOGY LABORATORY Final Diagnosis Specimen A. SKIN, left thigh: LENTIGINOUS MELANOCYTIC NEVUS, COMPOUND TYPE, IRRITATED (COMPOUND MELANOCYTIC NEVUS WITH ARCHITECTURAL DISORDER) (D22.72) 0 12:36 PM CDT DERMATOPATHOLOGY LABORATORY at 1236 CDT Clinical History R/O melanoma, nevus, irregular border, irregular color (brown papule). 0 12:36 PM CDT DERMATOPATHOLOGY LABORATORY Gross Description Specimen A: Received is one formalin filled container labeled with the patient's name and designated left thigh. The specimen consists of a shave measuring [id number]. Jar 0. 0 12:36 PM CDT DERMATOPATHOLOGY LABORATORY Microscopic Description Specimen A. SKIN, left thigh: This is a compound nevus. There is melanin pigment in the stratum corneum. There is architectural disorder characterized by a lentiginous proliferation of melanocytes between irregular nevus nests of cells along the dermal epidermal junction. There is underlying fibroplasia of the papillary dermis. The intradermal component is bland in appearance and matures with depth. (Compound Quan's Nevus or Compound Dysplastic Nevus) 0 12:36 PM CDT DERMATOPATHOLOGY LABORATORY Disclaimer An external and internal positive and negative controls are appropriate for the histochemical, immunohistochemical and immunofluorescence stain(s) in this case (if any), except where stated explicitly. The performance characteristics of the stain(s) cited in this report were developed and its performance characteristic determined by the Dermatopathology Laboratory at [facility], directed by Dr. Ramírez Tapia. These tests need not be, and therefore are not, approved by the [place] Food and Drug Administration. The tests are used for clinical purposes. Billing Codes Specimen Charges Stain Charges 30663 1 0 12:36 PM CDT DERMATOPATHOLOGY LABORATORY Embedded Images 0 12:36 PM CDT DERMATOPATHOLOGY LABORATORY Pathology/Cytolog y TISSUE SPECIMEN FROM SKIN / Unknown 02/10/2020 02/10/2020 11:07 AM CDT us Val Matos MD LAB - PATHOLOGY/CYTOLOGY ORD ERABLES Final Result DERMATOPATHOLOGY LABORATORY [facility] - Department of Dermatology [facility] Specialized Medicine [facility] [phone] documented in this encounter Visit Diagnoses Not on filedocumented in this encounter Care Teams Leadite Man Relationship Specialty Start Date End Date Sylvie Smith MD PCP - General Family Medicine 03/15/18 documented as of this encounter
--- OUTSIDE RECORDS SUMMARY | 2025-05-05 06:54 | XMS_ITS | Clinical Summary ---
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 Gender Identity Not on file Sexual Orientation Not on file Plan of Treatment Health Maintenance Due Date Last Done Comments DTAP/TDAP/TD VACCINES (1 - Tdap) 2004 HEPATITIS B VACCINES (1 of 3 - 19+ 3-dose series) 09/2004 HPV/Cotest (21-29) 2006 CERVICAL CANCER SCREENING 01/01/2016 HPV/Cotest (30-65) 01/01/2016 PAP SMEAR 01/01/2016 INFLUENZA VACCINE (#1) 2024 HPV VACCINES (No Doses Required) Completed Insurance [employer] Care Teams Television Cameraman Relationship Specialty Start Date End Date Andrea Lamas MD [address] [facility] [place] [address] PCP - General Family Practice 05/08/17
[2025-05-05 07:43] LABS: Free T4 Free Thyroxine 0.68 ng/dL (0.78-2.19)
[2025-05-05 10:08] LABS: Thyroid Stimulating Hormone 1.010 uIU/mL (0.465-4.680); Total Triiodothyronine (T3) 0.90 NG/ML (0.82-1.58)
== END 2025-05-05 06:52 | disposition home or self-care (01) ==
LOC: ANHLAB 06:51
PROVIDERS: PCP Family Medicine; Visit Provider Family Medicine
DX: E03.9 Hypothyroidism, unspecified (principal)
CPT/HCPCS: 36415; 84439; 84443; 84480